=== PATIENT | male | born 2000 | race Hispanic/Latino ===

== ENCOUNTER 2020-07-15 21:51 | Emergency (ER) | payer BC ==
--- NOTE | 2020-07-15 21:57 | ED.PDOC ---
History of Present Illness - General Time Seen by Provider: 07/15/20 21:56 - History of Present Illness Initial Comments: 19 yo male with left 3rd finger abscess s/p I&D 2 days ago in [place], was told he needs to remove packing today, but it hurt too bad to remove so came to ER to have his packing removed. no fever, on antibiotics. otherwise no concerns Review of Systems - Review of Systems Constitutional: Denies: chills, fever EENTM: Denies: blurred vision Respiratory: Denies: cough, short of breath Cardiology: Denies: chest pain, palpitations Gastrointestinal/Abdominal: Denies: abdominal pain, nausea, vomiting Genitourinary: Denies: discharge, dysuria Musculoskeletal: States: other - finger pain. Denies: back pain Skin: Denies: change in color Neurological: Denies: headache, numbness, paresthesia, tingling Hematologic/Lymphatic: Denies: blood clots, easy bleeding, easy bruising Past Medical History (General) - Patient Medical History Hx Seizures: No Hx Stroke: No Hx Asthma: No Hx of COPD: No Hx Cardiac Disorders: No Physical Exam - Physical Exam General Appearance: Alert, Comfortable, No apparent distress Eyes, Ears, Nose, Throat Exam: normal ENT inspection Neck: non-tender, full range of motion, supple Cardiovascular/Respiratory: regular rate, rhythm, normal peripheral pulses, normal breath sounds, no respiratory distress Hand Exam: normal inspection, normal ROM - felon abscess with some swelling, no erythema, 1 cm linear slit, aprx 1 inch of 1/4 packing. Finger soaked in warm saline, packing removed Neuro/Tendon: normal sensation, normal motor functions, normal tendon functions, responds to pain, no evidence tendon injury Mental Status: alert, oriented x 3 Skin Exam: normal color, warm/dry Progress - Progress Progress: 07/15/20 22:43 All questions were answered, and they express understanding of my assessment and the plan. They have been instructed to return if their symptoms worsen, and have been asked to follow up with their primary care physician to recheck today's presenting complaint. return precautions given. Instructed patient to complete all his antibiotics. Anya Lux DO #[id number] Departure - Departure Clinical Impression: Abscess Time of Disposition: 22:38 Disposition: Discharge to Home or Self Care Instructions: Abscess Incision and Drainage (DC) Additional Instructions: follow up with your primary care doctor 2-5 days Comments: continue with antibiotics prescribed, complete all antibiotics.
[2020-07-15 23:11] VITALS: O2SAT 99
[2020-07-15 23:12] VITALS: BP 136/85; TEMP 97
== END 2020-07-15 22:45 | disposition home or self-care (01) ==
LOC: ER 21:51
DX: Z48.01 Encounter for change or removal of surgical wound dressing (principal); L02.512 Cutaneous abscess of left hand